=== PATIENT | male | born 1985 | race Caucasian/White ===

== ENCOUNTER 2021-09-05 20:33 | Emergency (ER) | payer BC ==
[2021-09-06 00:48] LABS: RED BLOOD COUNT 4.5 M/UL (4.20-5.50); WHITE BLOOD COUNT 9.4 K/UL (4.5-11.0)
[2021-09-06 01:12] LABS: BUN/CREATININE RATIO 16 (0-10)
[2021-09-06] MEDS ORDERED: CLARITIN-D 241 EACH PO (02:04)
[2021-09-06] MEDS ORDERED: NAPROSYN500 MG PO (02:04)
== END 2021-09-06 02:25 | disposition home or self-care (01) ==
LOC: ER1 20:33
PROVIDERS: Physician Assistant
DX: J01.90 Acute sinusitis, unspecified (principal); R51.9 Headache, unspecified; Z20.822 Contact with and (suspected) exposure to COVID-19; J45.909 Unspecified asthma, uncomplicated; Z88.0 Allergy status to penicillin
CPT/HCPCS: 0240U; 70450; 80053; 85025; 96374; 96375; 99284; J1200; J1885; J2765